=== PATIENT | male | born 1940 | race Caucasian/White ===

== ENCOUNTER → 2018-07-15 | Outpatient (REF) | payer MEDICARE, OTHER ==
[~2018-07-15] VITALS: Ht 180.3 cm; Wt 117.9 kg
[~2018-07-15] MED LIST: IRBESARTAN150 M1 PO; RANITIDINE150 M1 PO
[2018-07-15 13:30] VITALS: BP 138/74
== END | disposition home or self-care (01) ==
LOC: ORM 12:15 → PO 12:18
PROVIDERS: ATTEND Internal Medicine Gastroenterology
DX: Z01.818 Encounter for other preprocedural examination (principal); R11.0 Nausea; R14.0 Abdominal distension (gaseous); R63.4 Abnormal weight loss; R10.33 Periumbilical pain; K63.2 Fistula of intestine; I10 Essential (primary) hypertension; K21.9 Gastro-esophageal reflux disease without esophagitis; Z87.442 Personal history of urinary calculi; Z90.49 Acquired absence of other specified parts of digestive tract; Z98.890 Other specified postprocedural states; Z72.89 Other problems related to lifestyle

== ENCOUNTER 2018-07-18 06:11 | Day surgery (SDC) | payer MEDICARE, OTHER ==
[2018-07-18 08:48] VITALS: BP 101/58
== END 2018-07-18 09:15 | disposition home or self-care (01) ==
LOC: ENDO 06:11 → ORM 14:00 → ENDO 14:00
PROVIDERS: ATTEND Internal Medicine Gastroenterology
PROC: 0DB48ZX Excision of Esophagogastric Junction, Via Natural or Artificial Opening Endoscopic, Diagnostic (ICD-10-PCS; principal; 2018-07-18)
PROC: 0DB98ZX Excision of Duodenum, Via Natural or Artificial Opening Endoscopic, Diagnostic (ICD-10-PCS; 2018-07-18)
PROC: 0DBN8ZX Excision of Sigmoid Colon, Via Natural or Artificial Opening Endoscopic, Diagnostic (ICD-10-PCS; 2018-07-18)
DX: K21.0 Gastro-esophageal reflux disease with esophagitis (principal); K29.70 Gastritis, unspecified, without bleeding; K29.80 Duodenitis without bleeding; K44.9 Diaphragmatic hernia without obstruction or gangrene; D17.5 Benign lipomatous neoplasm of intra-abdominal organs; D12.5 Benign neoplasm of sigmoid colon; K57.30 Diverticulosis of large intestine without perforation or abscess without bleeding; K64.4 Residual hemorrhoidal skin tags; K64.8 Other hemorrhoids; K63.2 Fistula of intestine; I10 Essential (primary) hypertension